=== PATIENT | male | born 1960 | race Caucasian/White ===

== ENCOUNTER 2020-02-19 08:14 | Outpatient (CLI) | payer OTHER, SELFPAY | END 2020-02-19 08:15 | disposition home or self-care (01) | PROVIDERS: PCP Internal Medicine; Visit Provider Surgery | DX: Z01.818 Encounter for other preprocedural examination (principal); K40.90 Unilateral inguinal hernia, without obstruction or gangrene, not specified as recurrent | CPT/HCPCS: 36415; 86850; 86900; 86901 ==

== ENCOUNTER 2020-02-24 01:01 | Outpatient (CLI) | payer OTHER, SELFPAY ==
[2020-02-24 18:41] LABS: SARS-CoV-2 RNA PCR Negative
== END 2020-02-24 01:02 | disposition home or self-care (01) ==
LOC: ANHCOVIDDT 01:01
PROVIDERS: PCP Internal Medicine; Visit Provider Surgery
DX: Z01.818 Encounter for other preprocedural examination (principal); Z11.59 Encounter for screening for other viral diseases
CPT/HCPCS: 87635; C9803; U0003

== ENCOUNTER 2020-02-26 01:48 | Day surgery (SDC) | payer OTHER, SELFPAY ==
[2020-02-13 10:42] VITALS: BMI 24.3
[2020-02-26] VITALS (8 sets, daily range): BP systolic 120–140; BP diastolic 62–93; PULSE 65–88; RESP 16–20; TEMP 36.6–36.9; O2SAT 97–100
[2020-02-26] MEDS: ACETAMINOPHEN 500 MG TABLET 1000 MG PO (10:03)
--- NOTE | 2020-02-26 10:13 | WPDHPUPDATE1 ---
History and Physical Update Update Date/Time: 02/26/20 10:13 History and Physical has been reviewed, including an updated exam of the patient. There are NO changes in the patient's condition. Risks, benefits, and alternatives have been discussed and questions answered. Patient agrees to proceed with procedure.
[2020-02-26] MEDS: LACTATED RINGERS 1,000 ML 30 ML IV CONT ×2 (10:18→12:29)
[2020-02-26] MEDS: KETOROLAC 15 MG/ML VIAL (*BKC) IV PUSH (10:19)
--- NOTE | 2020-02-26 10:43 | WPDANESEPPF ---
Anes - Initial Pre Proc Eval Procedure: Operation Date: 02/26/20 12:00 Proposed Procedures p Laparoscopic Left Inguinal Hernia Repair with Mesh, Davinci Assisted - Elver Grigsby DO Date/Time: 02/26/20 10:43 Surgeon: Elver Grigsby DO Pre Op Diagnosis: left inguinal hernia Patient Data Age: 59 Gender: M Height: 5 ft 8 in Weight: 71.2 kg Last Vital Signs Temp 36.6 C 02/26/20 10:24 Pulse 80 02/26/20 10:24 Resp 16 02/26/20 10:24 BP 127/83 02/26/20 10:24 Pulse Ox 100 02/26/20 10:24 Allergies Allergy/AdvReac Type Severity Reaction Status Date / Time No Known Allergies Allergy Mild Verified 02/26/20 09:59 Home Medications Medication Instructions Recorded Confirmed Type No Home Medications 02/03/20 02/26/20 History Patient hx anesthesia problems: none Family hx anesthesia problems: none [facility] Surgical History History of appendectomy had an appendectomy in 1962 Family History Family History Father , cause of AR at age of 55 Acute myocardial infarction Hypertension Sibling Multiple sclerosis Hypertension Dyslipidemia Chronic pain Boil Grandparent Breast cancer Heart disease Other Family history of cardiovascular disease Social History Social History Smoking status: Never smoker Alcohol intake: never 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 Spiritual care concerns: No Anes - Eval Final PreProcedure Day of Procedure 02/26/20 10:43 Patient weight: normal Heart: regular rate and rhythm Lungs: clear to auscultation Airway: Mallampati scale class 1 Neurological: alert and oriented Last oral intake: >/= 8 hours ASA classification: II Emergent: no Anesthetic plan: proceed Anesthesia type and monitoring: general and standard monitoring Informed Consent: The patient's anesthetic plan and its attendant risks and benefits were discussed with the patient/family/POA. Questions were solicited and answers provided to the satisfaction of the patient/family/POA.
[2020-02-26] MEDS: ceFAZolin 2 GM/D5W 50 ML 2 GM/50 ML BAG IVPB (10:46)
[2020-02-26] MEDS: BUPIVACAINE/EPINEPHRINE 0.5% 30 ML VIAL INFILTRATE (11:57)
--- NOTE | 2020-02-26 12:28 | PM.PROC ---
Procedure Note - Detailed Date of procedure: 02/26/20 Pre-op diagnosis: left inguinal hernia Post-op diagnosis: same (Indirect left inguinal hernia) Procedure performed: Laparoscopic left inguinal hernia repair with Progrip mesh, da Afia assisted Description of procedure: Procedure as well as risks, benefits, and alternatives were discussed with the patient. Written consent was obtained and placed in chart prior to procedure. Patient was brought back to surgical suite. He was placed supine on operating table. Time-out was done to confirm patient and procedure. He was then intubated by Anesthesia Department. His abdomen was prepped and draped in sterile fashion using chlorhexidine prep. 0.5% bupivacaine with epinephrine was infiltrated at each location for incision. A 12 millimeter transverse incision was made just superior to the umbilicus using a 15 blade scalpel. Blunt dissection was carried out down to the linea alba. A vertical incision was made at the linea alba using a 15 blade scalpel. The peritoneum was then bluntly entered. A 12 millimeter trocar was inserted and carbon dioxide insufflation was used to create a pneumoperitoneum. A camera was inserted and the abdominal cavity was inspected. The patient was placed in slight Trendelenburg position. An 8 millimeter incision was made on the right lateral abdomen and an 8 millimeter trocar was inserted under direct visualization. Another 8 millimeter incision was made in the left lateral abdomen and an 8 millimeter trocar was inserted under direct visualization. The robotic arms were brought up to the patient's bedside and secured to the ports. The camera and instruments were inserted. I then moved over to the robotic console and took control of the camera and instruments. After careful inspection of the abdominal cavity, I began scoring the peritoneum along the left lower quadrant using scissors with electrocautery. The preperitoneal plane was entered and this was carefully dissected caudally along the inferior epigastric vessels. Careful dissection with scissors with electrocautery and blunt dissection was used to continue this dissection. I dissected far enough laterally to allow for mesh placement, and also dissected medially to identify the pubic arch and Fam's ligament. The hernia sac was identified and carefully dissected posteriorly. The cord contents were also identified and the peritoneum was carefully dissected far enough posteriorly to allow for mesh placement. Once an adequate pocket was created, I then placed the mesh within the preperitoneal pocket and carefully unfolded it. The mesh was centered on the hernia defect with adequate overlap circumferentially. The inferior edge of the mesh was inspected to ensure that it was far enough away from the peritoneal edge. The mesh appeared in proper position overlying the entire myopectineal orifice. The peritoneum was then closed over the mesh using a 3-0 V-lock running absorbable suture. The robotic instruments were removed. The robotic arms were disengaged from the ports and moved away from the bedside. The patient was flattened out in bed, the ports were removed under direct visualization, and the pneumoperitoneum was released. The fascia of the umbilical incision was approximated using an 0 Vicryl [id number] suture. The skin of the incisions was approximated using 4-0 Monocryl subcuticular suture, and Exofin glue was applied on top. The patient was awakened from anesthesia, extubated, and transferred to recovery. Implants: Progrip Mesh 10cm x 15cm Anesthesia: GETA and local (0.5% bupivicaine with epi) Surgeon: Elver Grigsby DO Estimated blood loss (mL): 5 Drains: No Packing: No Pathology: none sent Complications: No immediate complications Condition: stable Disposition: same day Findings: Dewey is a 59 y/o male who presents with a left inguinal hernia. He reports first noticing a bulge in the left groin about
--- NOTE | 2020-02-26 14:43 | SUR.PHASEI ---
1312; PT ARRIVED INTO [facility]. WALKED TO BATHROOM. GAIT STEADY. VOIDED.
--- NOTE | 2020-02-26 14:45 | SUR.PHASEII ---
1312; PT ARRIVED INTO [facility]. WALKED TO BATHROOM. VOIDED.
== END 2020-02-26 14:34 | disposition home or self-care (01) ==
PROVIDERS: PCP Internal Medicine; Visit Provider Surgery
PROC: 8E0Y4CZ Robotic Assisted Procedure of Lower Extremity, Percutaneous Endoscopic Approach (ICD-10-PCS; CPT 49650; principal; 2020-02-26 12:00)
DX: K40.90 Unilateral inguinal hernia, without obstruction or gangrene, not specified as recurrent (principal)
CPT/HCPCS: 49650; S2900; 87635; A9270; C1781; C9803; J0690; J1100; J1170; J1885; J2250; J2370; J2405; J2704; J2710; J3010; J7120; U0003

== ENCOUNTER 2020-06-19 10:03 | Outpatient (CLI) | payer OTHER, SELFPAY ==
[2020-06-20 18:04] LABS: SARS-CoV-2 RNA PCR Negative
== END 2020-06-19 10:04 | disposition home or self-care (01) ==
LOC: CHSLAB 10:09
PROVIDERS: PCP Internal Medicine; Visit Provider Internal Medicine
DX: Z20.828 Contact with and (suspected) exposure to other viral communicable diseases (principal)
CPT/HCPCS: 87635; C9803; U0003

== ENCOUNTER 2021-08-20 09:52 | Outpatient (CLI) | payer BC, SELFPAY ==
[2021-08-20 11:17] LABS: SARS-CoV-2 Ag Negative (Negative)
== END 2021-08-20 09:53 | disposition home or self-care (01) ==
LOC: CHSLAB 09:55
PROVIDERS: PCP Internal Medicine; Visit Provider Internal Medicine
DX: J06.9 Acute upper respiratory infection, unspecified (principal); Z20.822 Contact with and (suspected) exposure to COVID-19
CPT/HCPCS: 87426; C9803

== ENCOUNTER 2022-01-14 16:14 | Outpatient (CLI) | payer OTHER, SELFPAY ==
--- NOTE | ~2022-01-14 | XR_ITS ---
EXAMINATION: XR hand RT min 3V INDICATION: Right thumb pain TECHNIQUE: Three views of the right hand are obtained. COMPARISON: None available FINDINGS: Bone alignment is normal. There is no fracture. There is mild osteoarthritis of multiple in terphalangeal joints. The soft tissues are unremarkable. There is calcification of the triangular fib rocartilage. IMPRESSION: 1. No acute osseous abnormality. Reviewed, dictated and finalized at location F.
== END 2022-01-14 16:15 | disposition home or self-care (01) ==
LOC: CHSIMG 16:19
PROVIDERS: PCP Internal Medicine; Visit Provider Internal Medicine
DX: M79.644 Pain in right finger(s) (principal)
CPT/HCPCS: 73130

== ENCOUNTER 2022-11-03 06:48 | Outpatient (CLI) | payer OTHER, SELFPAY ==
--- NOTE | ~2022-11-03 | MR_ITS ---
MRI of the right knee Clinical history: Medial jointline cystic mass Technique: Coronal proton density and proton density-weighted images, sagittal proton-density and T2 fat-sat images, and axial proton-density fat-saturated images were acquired. Following intravenous ad ministration of 15 cc MultiHance gadolinium, T1-weighted fat-sat imaging was performed in the axial, coronal, and sagittal planes. Findings: Anterior and posterior cruciate ligaments are intact. Medial collateral ligament and the la teral collateral ligament complex are intact. Popliteus tendon is intact. There is prominent horizontal tear of the posterior horn and body of the medial meniscus. No lateral meniscal tear identified. There is a multilobulated/multiseptated cystic mass the medial joint line m easuring approximately 3.5 x 1.0 x 3.0 cm in extent, most likely a large parameniscal cyst related to underlying meniscal tear. Articular cartilage is relatively well preserved throughout the knee. Bone marrow signals are unremar kable. Extensor mechanism is intact. No significant joint effusion or Crawley's cyst. No suspicious or solid postcontrast enhancement identified in association with the cystic mass noted above. No other abnormal postcontrast enhancement identified. Impression: Prominent horizontal tear of the posterior horn and body of the medial meniscus with associated 3.5 x 1.0 x 3.0 cm multiseptated para-meniscal cyst along the medial joint line. Reviewed, dictated and finalized at location . Impression: Prominent horizontal tear of the posterior horn and body of the medial meniscus with associated 3.5 x 1.0 x 3.0 cm multiseptated para-meniscal cyst along the medial joint line.
== END 2022-11-03 06:49 | disposition home or self-care (01) ==
LOC: CHSIMG 06:50
PROVIDERS: PCP Internal Medicine; Visit Provider Internal Medicine
DX: R22.9 Localized swelling, mass and lump, unspecified (principal); S83.241A Other tear of medial meniscus, current injury, right knee, initial encounter
CPT/HCPCS: 73723; A9577